=== PATIENT | female | born 1960 | race Caucasian/White ===

== ENCOUNTER 2016-10-31 15:05 | Emergency (ER) | payer BC, OTHER ==
[~2016-10-31] VITALS: Ht 172.7 cm; Wt 99.8 kg
--- NOTE | ~2016-10-31 | EKG ---
[place] [address] [employer] [employer] [place] [address] ELECTROCARDIOGRAM REPORT Name: IVANNA JONES [id number] Admission: 10/31/16 Attend Phys: Discharge: 10/31/16 Date of : 56 Report #: [id number] THIS REPORT FOR: //name// [facility] ED Test Date: 2016-10-31 Test Time: 15:31:21 Pat Name: IVANNA JONES Department: Room: Gender: F [place] Worker: CORTES : 1960 Requested By: Thomas Zamarripa Order Number: [id number] MD: Nakul Mukherjee Measurements Intervals Morton Rate: 63 P: 42 FL: 165 QRS: 35 QRSD: 110 T: 33 QT: 424 QTc: 435 Interpretive Statements Sinus rhythm No significant abnormality No previous ECG available for comparison Electronically Signed On 11-01-2016 8:31:36 CDT by Nakul Mukherjee [email or web address] <ELECTRONICALLY SIGNED> By: Nakul Mukherjee MD, [facility] 11/01/16 0831 1531 1531 Nakul Mukherjee MD, FACC /EPI
[2016-10-31 15:40] LABS: ABSOLUTE NEUTROPHILS 3.2 thou/uL (1.4-8.2); BASOPHILS 0.6 % (0.0-2.0); HEMATOCRIT 39.2 % (37.0-47.0); HEMOGLOBIN 13.2 gm/dL (12.0-15.0); LYMPHOCYTES 32.4 % (24.0-44.0); MCH 29.2 pg (26.0-34.0); MCHC 33.6 g/dL (28.0-37.0); MONOCYTES 10.5 % (1.0-8.0); PLATELET COUNT 230 thou/uL (150-400); POLYS 54.5 % (36.0-66.0); RBC 4.51 mil/uL (4.20-5.00); RDW 13.5 % (10.5-14.5); WBC 5.9 thou/uL (4.0-11.0)
[2016-10-31 15:41] LABS: MANUAL DIFF NO
[2016-10-31] MEDS ORDERED: WELLBUTRIN XL300 MG PO (15:45)
[2016-10-31 15:48] LABS: ANION GAP 8 mmol/L (7-16); BUN 24 mg/dL (7-18); CALCIUM 8.7 mg/dL (8.5-10.1); CHLORIDE 105 mmol/L (98-107); CO2 25 mmol/L (21-32); CREATININE 0.9 mg/dL (0.6-1.0); GLUCOSE 128 mg/dL (74-106); POTASSIUM 4.1 mmol/L (3.5-5.1); SODIUM 138 mmol/L (136-145)
[2016-10-31 15:56] LABS: TROPONIN-I < 0.04 ng/mL (<0.04-0.07)
[2016-10-31] MEDS ORDERED: FLONASE 0.05%50 MCG NASAL (16:08)
[2016-10-31 16:43] VITALS: BP 129/67
== END 2016-10-31 16:44 | disposition home or self-care (01) ==
LOC: ER 15:05
PROVIDERS: Physician Assistant
DX: J01.10 Acute frontal sinusitis, unspecified (principal); J01.00 Acute maxillary sinusitis, unspecified; F32.9 Major depressive disorder, single episode, unspecified; F10.99 Alcohol use, unspecified with unspecified alcohol-induced disorder; Z85.3 Personal history of malignant neoplasm of breast

== ENCOUNTER 2019-09-05 21:05 | Emergency (ER) | payer OTHER ==
[~2019-09-05] VITALS: Ht 170.2 cm; Wt 99.8 kg
[~2019-09-05 21:05] MED LIST: FLONASE 0.05%50 MCG NASAL; WELLBUTRIN XL300 MG PO
[2019-09-05 22:44] VITALS: BP 118/56
== END 2019-09-05 22:35 | disposition home or self-care (01) ==
LOC: ER 21:05
DX: S61.412A Laceration without foreign body of left hand, initial encounter (principal); F32.9 Major depressive disorder, single episode, unspecified; Z98.890 Other specified postprocedural states; Z85.3 Personal history of malignant neoplasm of breast; W26.8XXA Contact with other sharp object(s), not elsewhere classified, initial encounter; Y93.H2 Activity, gardening and landscaping; Y92.89 Other specified places as the place of occurrence of the external cause; Y99.8 Other external cause status